=== PATIENT | male | born 1985 | race Caucasian/White ===

== ENCOUNTER 2023-09-10 06:08 | Day surgery (SDC) | payer OTHER, SELFPAY ==
[2023-09-10] VITALS (11 sets, daily range): BP systolic 125–155; BP diastolic 76–92
[2023-09-10] MEDS: NORMOSOL-R 1000 IV (06:40)
[2023-09-10] MEDS: TYLENOL 1000 MG PO (06:40)
[2023-09-10] MEDS: DILAUDID 0.5 MG IV (12:50)
[2023-09-10] MEDS: ROXICODONE 5 MG PO (13:35)
== END 2023-09-10 13:50 | disposition home or self-care (01) ==
LOC: SDS 06:08
PROVIDERS: ATTENDING PHYSICIAN Surgery
DX: K50.10 Crohn's disease of large intestine without complications (principal)
CPT/HCPCS: 45330